=== PATIENT | male | born 1940 | race Caucasian/White ===

== ENCOUNTER 2022-11-20 08:24 | Day surgery (SDC) | payer OTHER ==
[~2022-11-20] VITALS: Ht 170.2 cm; Wt 106.6 kg
[~2022-11-20 08:24] MED LIST: CEFAZOLIN SOD 2 GM in D5W 50 ML IV ONE; FLUT1DIS3 IH; FURO-149 PO; HYDR-3917 PO; NEU100 PO; PRO40 PO; RIVA20TA PO
[2022-11-20 10:23] VITALS: O2SAT 96
[2022-11-20] MEDS ORDERED: DESFLURANE 15 MIN GAS INH ONE (12:46)
[2022-11-20] MEDS ORDERED: ONDANSETRON HCL 4 MG/2 ML VIAL ONE (12:46)
[2022-11-20] MEDS ORDERED: ROCURONIUM BROMIDE 10 MG/ML (ZEMURON) ONE (12:46)
[2022-11-20] MEDS ORDERED: PROPOFOL 200MG/ 20ML VIAL (DIPRIVAN) IV ONE (12:46)
[2022-11-20] MEDS ORDERED: LIDOCAINE 2%, 20 ML MDV ONE (12:46)
[2022-11-20] MEDS ORDERED: NS IRRIG SOLN 1000 ML IR ONE (12:46)
[2022-11-20] MEDS ORDERED: KETOROLAC TROMETHAMINE 30 MG VIAL ONE (12:46)
[2022-11-20] MEDS ORDERED: fentaNYL CITRATE/PF 100 MCG/2 ML AMP ONE (12:46)
[2022-11-20] MEDS ORDERED: BUPIVACAINE /PF 0.25% 30 ML VIAL INJ ONE (12:46)
[2022-11-20] MEDS ORDERED: LR 1,000 ML IV.SOLN IV ONE (12:46)
[2022-11-20] MEDS ORDERED: DEXAMETHASONE SOD PHOSPHATE 4 MG/ML VIAL ONE (12:46)
[2022-11-20] MEDS ORDERED: SUGAMMADEX SODIUM 200 MG/2 ML VIAL IV ONE (12:46)
[2022-11-20] MEDS ORDERED: MIDAZOLAM HCL 2 MG/2 ML VIAL (VERSED) ONE (12:46)
[2022-11-20] MEDS ORDERED: ACETAMINOPHEN I.V. 1000 MG 100 ML IV ONE (13:27)
[2022-11-20] MEDS ORDERED: LABETALOL 100 MG/ 20ML VIAL IVP PRN (13:30)
[2022-11-20] MEDS ORDERED: HYDROmorphone 1 MG/ML INJ. CARTRIDGE IVP PRN ×2 (13:30)
[2022-11-20] MEDS ORDERED: LR 1,000 ML IV SCH (13:30)
[2022-11-20] MEDS ORDERED: MEPERIDINE HCL/PF 25 MG/ML DISP.SYRIN IVP PRN (13:30)
[2022-11-20] MEDS ORDERED: hydrALAZINE HCL 20 MG/ML VIAL IVP PRN (13:30)
[2022-11-20] MEDS ORDERED: METOCLOPRAMIDE HCL 10 MG/2 ML VIAL IVP PRN (13:30)
[2022-11-20] MEDS ORDERED: HYDROcodone/ACETAMIN 5-325 MG TAB (NORCO/ VICODIN) PO PRN ×2 (14:00)
[2022-11-20] MEDS ORDERED: D5/0.45 NS 1,000 ML IV SCH ×2 (14:00→19:00)
[2022-11-20 16:16] VITALS: BP_SYST 142; PULSE 59; RESP 18
== END 2022-11-20 16:14 | disposition home or self-care (01) ==
LOC: SDS 08:24 → SMU 08:27 → SDS 16:14
PROVIDERS: ATTEND Colon & Rectal Surgery
DX: K42.0 Umbilical hernia with obstruction, without gangrene (principal); I13.0 Hypertensive heart and chronic kidney disease with heart failure and stage 1 through stage 4 chronic kidney disease, or unspecified chronic kidney disease; I50.9 Heart failure, unspecified; N18.30 Chronic kidney disease, stage 3 unspecified; J44.9 Chronic obstructive pulmonary disease, unspecified; E78.00 Pure hypercholesterolemia, unspecified; Z68.41 Body mass index [BMI] 40.0-44.9, adult; M17.12 Unilateral primary osteoarthritis, left knee; M10.9 Gout, unspecified; M19.90 Unspecified osteoarthritis, unspecified site; E66.9 Obesity, unspecified; Z79.899 Other long term (current) drug therapy
CPT/HCPCS: 87081; 49594; 88302; J3490 ×2; J0690; J1100; J1885; J2001; J3465; J2405; J2704; J3010; J7060; J7120; C1781; J0131

== ENCOUNTER 2023-11-08 17:27 | Emergency (ER) | payer OTHER ==
[~2023-11-08] VITALS: Ht 170.2 cm; Wt 106.6 kg
[~2023-11-08 17:27] MED LIST changes: -CEFAZOLIN SOD 2 GM in D5W 50 ML IV ONE
[2023-11-08 17:35] VITALS: BP_SYST 179; PULSE 71; RESP 18; TEMP 98.3; O2SAT 98
== END 2023-11-08 20:49 | disposition home or self-care (01) ==
LOC: SED 17:27
DX: H33.22 Serous retinal detachment, left eye (principal); J45.909 Unspecified asthma, uncomplicated; I10 Essential (primary) hypertension; E78.5 Hyperlipidemia, unspecified; Z98.890 Other specified postprocedural states; Z79.899 Other long term (current) drug therapy; Z79.2 Long term (current) use of antibiotics
CPT/HCPCS: 99282